=== PATIENT | male | born 1950 | race Caucasian/White ===

== ENCOUNTER 2016-12-25 16:50 | Emergency (ER) | payer MEDICARE, OTHER ==
[2016-12-25 17:22] LABS: PROTHROMBIN TIME 12.8 SECONDS (11.7-14.0); PTT 31.1 SECONDS (23.2-31.4)
[2016-12-25 17:25] LABS: BASOPHIL 0.2 % (0-2); EOSINOPHIL 0.4 % (0-7); HCT 44.5 % (42.0-52.0); HGB 15.2 g/dl (13.2-18.0); MCH 31.1 pg (25.0-31.0); MCHC 34.2 g/dL (32.0-36.0); MCV 91.2 fL (78.0-100.0); MONOCYTE 12.2 % (0-12); MPV 10.5 fL (6.0-9.5); NEUTROPHIL 76.2 % (41-80); PLT 238 K/uL (150-400); RBC 4.88 M/uL (4.70-6.00); RDW 14.4 % (11.5-14.0); WBC 8.4 K/uL (4.0-10.5)
[2016-12-25 17:30] LABS: TROPONIN T 0.017 ng/mL
[2016-12-25 17:32] LABS: ALBUMIN 4.3 g/dL (3.4-4.8); BILIRUBIN - TOTAL 0.4 mg/dL (0.1-1.0); CREATININE 0.8 mg/dL (0.7-1.2); GLOBULIN (CALCULATION) 2.7 g/dL (2.2-4.2); POTASSIUM 4.1 mmol/L (3.5-5.1)
== END 2016-12-25 19:00 | disposition home or self-care (01) ==
LOC: FER 16:50
PROVIDERS: Internal Medicine
DX: J11.1 Influenza due to unidentified influenza virus with other respiratory manifestations (principal); J44.1 Chronic obstructive pulmonary disease with (acute) exacerbation; I10 Essential (primary) hypertension; N40.0 Benign prostatic hyperplasia without lower urinary tract symptoms; Z87.891 Personal history of nicotine dependence; Z79.51 Long term (current) use of inhaled steroids; Z79.899 Other long term (current) drug therapy
CPT/HCPCS: 36415; 71010; 80053; 83880; 84484; 85025; 85610; 85730; 87804; 87899; 93005; 94640; J2930